=== PATIENT | female | born 1950 | race Caucasian/White ===

== ENCOUNTER 2016-11-26 16:57 | Inpatient (IN) | payer MEDICARE ==
[~2016-11-26] VITALS: Ht 146.1 cm; Wt 54.0 kg
[2016-11-26] MEDS ORDERED: Alum-Mag Hydrox-Simeth 30 mL Suspension PO PRN (17:55)
[2016-11-26] MEDS ORDERED: Ondansetron 2 mg/mL 2 mL Inj IVPUSH PRN (17:55)
[2016-11-26] MEDS ORDERED: Polyethylene Glycol (PEG) 17 Gm Powder PO PRN (17:55)
[2016-11-26 18:08] VITALS: BP 190/79; PULSE 83; RESP 16; O2SAT 98
[2016-11-26] MEDS ORDERED: LEVO150T5 PO (18:18)
[2016-11-26] MEDS ORDERED: OMEP40CA36 PO (18:18)
[2016-11-26] MEDS ORDERED: PARO40TA3 PO (18:18)
[2016-11-26] MEDS ORDERED: CLON0.1T PO (18:18)
[2016-11-26] MEDS ORDERED: ZOLP10TA5 PO (18:18)
[2016-11-26] MEDS ORDERED: LISI40TA PO (18:18)
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
[2016-11-26] MEDS: 0.9% Sodium Chloride 1,000 ML IV SCH (18:57)
[2016-11-26] MEDS: Vancomycin Dose per Pharmacist XX SCH (19:06)
--- NOTE | 2016-11-26 19:16 | PCM.CONPHA ---
Subjective Date of Service: Nov 26, 2016 Hand pain Reason for Pharmacy Consult: Vancomycin Dosing Objective Vital Signs Date Time Temp Pulse Resp B/P Pulse Ox O2 Delivery O2 Flow Rate FiO2 11/26/16 18:08 37.1 83 16 190/79 98 Room Air Weight (Kilograms): 54.000 Height (Feet): 4 Height (Inches): 9.50 Assessment/Plan Assessment/Plan Vancomycin management per pharmacy Indication: cellulitis Goal trough: 10-15 Pertinent information: - Patient comes a transfer from . - According to [facility] records, SCr is 0.7, WBC 16.4. - Per RN report, patient received vancomycin 1000 mg IV x1 around 1400 today as a loading dose. Maintenance dose: vancomycin 500 mg IV [id number]. Estimated vancomycing trough ( per pharmacokinetic modeling) is 13.1. Trough has been scheduled for 11/28/16 @ 0130. Pharmacy to continue to monitor and dose vancomycin. Thank you, Keya Payne Pharmacist Keya Payne Nov 26, 2016 19:16
[2016-11-26 19:40] VITALS: BP 194/84; PULSE 88; RESP 16; O2SAT 95
[2016-11-26] MEDS: HYDROcodone-APAP 5-325 mg Tablet PO PRN (20:22)
[2016-11-27] VITALS (11 sets, daily range): BP systolic 132–199; BP diastolic 50–87; PULSE 77–94; RESP 14–20; O2SAT 92–100
[2016-11-27] MEDS: Heparin 5,000 Unit/mL Inj SUBQ SCH ×3 (00:14→16:30)
[2016-11-27 00:24] LABS: Mean Corpuscular Volume 83.1 fL (81-100)
[2016-11-27] MEDS: Vancomycin Inj 500 MG in 0.9% Sodium Chloride 100 ML IV SCH ×3 (02:10→15:00)
[2016-11-27] MEDS: HYDROcodone-APAP 5-325 mg Tablet PO PRN ×2 (04:43→20:44)
--- NOTE | 2016-11-27 07:55 | DRSVH ---
PROCEDURE: X-RAY LEFT HAND, MINIMUM THREE VIEWS ([id number]) INDICATIONS: swelling and pain TECHNIQUE: 3 views of the hand(s) acquired. COMPARISON: None. FINDINGS: Bones: No fractures or dislocations. Carpal bones are normally aligned. No suspicious bony lesions . Soft tissues: No suspicious soft tissue calcifications. IMPRESSION: No radiodense foreign body identified. Dictated by: Ethel Cole MD, PhD on 11/27/2016 at 7:52 Approved by: Ethel Cole MD, PhD on 11/27/2016 at 7:53
[2016-11-27] MEDS: cloNIDine 0.1 mg Tablet PO SCH ×2 (08:48→20:40)
[2016-11-27] MEDS: 0.9% Sodium Chloride 1,000 ML IV SCH ×2 (08:54→13:53)
[2016-11-27] MEDS: Vancomycin Dose per Pharmacist XX SCH (09:05)
--- NOTE | 2016-11-27 09:56 | CONS ---
[address] [address] CONSULTATION REPORT PATIENT: RUBIA GRAY : 1950 MR#: [id number] ADMIT: 11/26/2016 JOB ID: [id number] DATE OF SERVICE: 11/27/2016 CHIEF COMPLAINT: Left hand and thumb pain and swelling. HISTORY OF PRESENT ILLNESS: This is a pleasant 66-year-old, [id number] female that presents with a 3-day history of left thumb and hand pain and swelling. She was tearing apart a motor home with her boyfriend when she stuck the radial aspect of her left thumb on a piece of wood. She had swelling about 2 hours after the injury with erythema. This progressively worsened yesterday and thus she presented to the hospital for further evaluation and treatment. Upon presentation to [facility] it was noted that she had quite a bit of swelling and erythema to the thenar eminence as well as the thumb. She was thus transferred over to [facility] for further evaluation and treatment. She was admitted to the hospitalist service and started on IV antibiotics. She had IV antibiotics down at [place], but had a lot of nausea at that time. She was restarted vancomycin as well as Cipro here as she was admitted to the hospital. Patient states she has not had any constitutional symptoms including any fever, sweats, and chills and only had one incidence of nausea vomiting after being administered the antibiotics. She has had normal appetite as well as normal bowel and bladder function. She denies any paresthesias to the left hand or thumb. She denies any other associated symptoms or injuries. PAST MEDICAL HISTORY: Hypertension, hypothyroidism, and anxiety. PAST SURGICAL HISTORY: Appendectomy, cervical fusion, and hysterectomy. FAMILY HISTORY: Noncontributory. SOCIAL HISTORY: The patient smokes a pack of cigarettes a day. Denies any alcohol utilization. Uses marijuana daily. MEDICATIONS: Please see electronic medical record for a list of patient medications. ALLERGIES: 1. FLEXERIL. 2. ROCEPHIN. REVIEW OF SYSTEMS: The patient denies any fevers, sweats, chills, chest pain, short of breath, nausea, vomiting, and diarrhea. She complains mainly of left hand and thumb pain as described in the history of present illness. PHYSICAL EXAMINATION: General: The patient is alert, no apparent distress. HEENT: Normocephalic, atraumatic. Extraocular movements intact. Nares patent. Lungs no wheezes or signs of respiratory distress. Neurologic, cranial nerves 2-12 are intact. Extremities: Gross observation of the patient's left thumb there is a moderate amount of erythema to the dorsal aspect of the hand and the thumb. No palpable fluctuance, but there is near circumferential swelling. There is tenderness to palpation both dorsally and volarly to the thumb including overlying the flexor tendon sheath. The patient demonstrates very limited thumb range of motion secondary reproduction of pain. Small puncture wound just radial to the first MCP joint. The erythema stops just distal to the wrist crease. There are palpable distal radial and ulnar pulses, brisk capillary refill to the fingers, and completely intact sensation median, radial, and ulnar nerve distribution. DIAGNOSTIC STUDIES: His white count was obtained and this morning demonstrates elevation at 14.8, as well as elevated ESR of 66 and elevated CRP of 2.9. Three views of the left hand was also obtained and demonstrated no acute fractures or dislocations as it is mainly soft tissue swelling surrounding the thumb and the dorsal radial hand. IMPRESSION: Left hand and thumb cellulitis and abscess. PLAN: Discussed with the patient in length her diagnosis. She has really not had much improvement overnight, and she has already had two different rounds of antibiotics consisting of vancomycin and Cipro. We discussed proceeding with an incision and drainage of the left hand and thumb. She understands risks include, but are not limited to, neurovascular injury, tendon injury, failure to resolve the infection, stiffness, persistent pain all of which may require further intervention. The patient had all questions answered. Consent was signed and placed in the chart. The patient will undergo surgery this afternoon. She will be splinted and postoperative day number one, the splint will be removed as well as the drains that will be replaced. She will then start occupational therapy for range of motion of the left hand. The patient can be discharged to home with p.o. antibiotics once her condition improves and/or the final cultures and sensitivities return.
[2016-11-27] MEDS ORDERED: EPHEDrine/NS 5 mg/mL 5 mL Syringe ONE (13:56)
[2016-11-27] MEDS ORDERED: Ondansetron 2 mg/mL 2 mL Inj ONE (13:56)
[2016-11-27] MEDS ORDERED: Propofol 10,000 mCg/mL 20 mL Inj ONE (13:56)
[2016-11-27] MEDS ORDERED: fentaNYL-PF 50 mCg/mL 2 mL Inj ONE (13:56)
--- NOTE | 2016-11-27 15:04 | PCM.PNMED ---
Subjective Date of Service Nov 27, 2016 Subjective Patient reports continued pain in left thumb. Thinks erythema may have come down a little bit to rest. Getting surgery this afternoon. Has been nothing by mouth. Patient was hypertensive however has not received home medications since admission. Exam Vital Signs Vital Sign - Last Date Time Temp Pulse Resp B/P Pulse Ox O2 Delivery O2 Flow Rate FiO2 11/27/16 08:06 36.5 87 20 170/74 93 Room Air Intake and Output 11/26/16 11/26/16 11/27/16 Cumulative From/Thru 15:00 23:00 07:00 11/26/16 18:08 - 11/27/16 06:46 Intake Total 0 ml 200 ml 200 ml Output Total 0 ml 400 ml 400 ml Balance 0 ml -200 ml -200 ml Intake Oral 0 ml 200 ml 200 ml Output Urine Total 0 ml 400 ml 400 ml Exam General: No acute distress, well-developed, well-nourished, appropriately interactive HEENT: Normocephalic, atraumatic. External ears without defect. Pupils equal, round, and reactive to light and accommodation. Anicteric sclerae, moist conjunctivae, and no lid lag. Oropharynx free of erythema and cobble stoning with moist mucosa. Neck: Supple with full range of motion. No jugular venous distension. No bruits. No lymphadenopathy or thyromegaly. Cardiovascular: Regular rate and rhythm with no murmurs, rubs, or gallops appreciated Pulmonary: Clear to auscultation bilaterally with no crackles, wheezes, or rhonchi. Normal respiratory effort with no use of accessory muscles. Abdomen: Bowel tones present. Soft, nontender, nondistended. No hepatosplenomegaly or masses appreciated. Extremities: Left thenar eminence with erythema, significantly swollen, and quite tender even to light touch. Erythema extending up the wrist- improved. Unable to move the thumb in any plane of motion. Skin: Erythema as above. Neurological: Cranial nerves grossly intact. Normal muscle strength, tone, and bulk. Reflexes, coordination, and sensory function within normal limits. No known gait impairment. Psychiatric: Normal mood and affect. Alert and oriented to person, place, and time. IVs and Medications Medications Reviewed: Medications were reviewed in detail Lab and Diagnostics Result Diagram: 11/27/16 0015 11/27/16 0530 X-Rays, CTs and MRIs 11/26/162004X-RAY LEFT HAND, MINIMUM THREE VIEWS ([id number]) INDICATIONS: swelling and pain TECHNIQUE: 3 views of the hand(s) acquired. COMPARISON: None. FINDINGS: Bones: No fractures or dislocations. Carpal bones are normally aligned. No suspicious bony lesions. Soft tissues: No suspicious soft tissue calcifications. IMPRESSION: No radiodense foreign body identified. Assessment & Plan Maribell Reynaga is a 66 year old woman with past medical history depression, hypertension, hypothyroidism presented to [facility] emergency department today with a left thumb injury and hand pain for the last 3 days. #Left hand cellulitis, present on admission, -Dr. Snow consulted, appreciate time and expertise -Plan for surgery this afternoon. NPO after midnight. -Continue Vancomycin and Ciprofloxacin -NS @ 100 cc/hr -Morphine as needed for pain -Per Surgery- patient will undergo surgery this afternoon. -She will be splinted and postoperative day number one, the splint will be removed as well as the drains that will be replaced. -She will then start occupational therapy for range of motion of the left hand. -The patient can be discharged to home with p.o. antibiotics once her condition improves and/or the final cultures and sensitivities return. #Hypertension -Continue home medications Chronic issues, present on admission, stable: #Hypothyroidism -Continue home medications #Depression -Continue home medications #Diet controlled diabetes -Carb constant diet. Blood glucose checks. -Consider initiating insulin. CODE STATUS: FULL CODE Patient is admitted under inpatient status with expected length of stay greater than 2 midnights due to severity of presenting symptoms, risk of adverse event, and complexity of treatment plan. VTE Prophylaxis: Sub-Q Heparin (Unfractionated) VTE Mechanical Devices: Intermittant Pneumatic CD Resuscitation Status: CPR: Attempt Resuscitation Mario Coreas MD Nov 27, 2016 15:04
[2016-11-27] MEDS ORDERED: Polyethylene Glycol (PEG) 17 Gm Powder PO PRN (15:10)
[2016-11-27] MEDS ORDERED: Magnesium Hydroxide 10 mL Oral Concentration PO PRN (15:10)
[2016-11-27] MEDS ORDERED: diphenhydrAMINE 25 mg Capsule PO PRN (15:10)
[2016-11-27] MEDS ORDERED: Sodium Biphos-Phos 133 mL Enema RECTAL PRN (15:10)
[2016-11-27] MEDS ORDERED: Lactated Ringer's 1,000 ML IV ONE (15:11)
[2016-11-27] MEDS ORDERED: Lactated Ringer's 1,000 ML IV SCH (15:31)
[2016-11-27] MEDS ORDERED: Lactated Ringer's 500 ML IV PRN (15:31)
--- NOTE | 2016-11-27 15:31 | PCM.HPANE ---
Patient Data Surgeon Admitting Provider:Alberto Macias MD Attending Provider:Mario Coreas MD Primary Care Physician:Melody Other Provider: Reason for Visit Left Hip Cellulitis Ht/WT & BMI Height (Feet): 4 Height (Inches): 9.50 Weight (Kilograms): 54.000 Body Mass Index 25.33 Allergies Coded Allergies: cyclobenzaprine (Verified Allergy, Severe, Anaphylaxis, 11/26/16) Airway swelling ceftriaxone (Verified Adverse Reaction, Intermediate, Nausea,Vomiting, ) Immediate vomiting after 1 minute of infusion Past Anesthesia History Anesthesia History: Denies:: Anesthesia Reactions Diabetes History Hx Diabetes?: Yes Current Bedside Blood Glucose: 110 MRSA MRSA: No Medications Reported Medications Omeprazole 40 Mg Capsule.dr40 Mg PO DAILY Ref 0 11/26/16 Clonidine 0.1 Mg Tablet0.1 Mg PO BID Ref 0 11/26/16 Paroxetine 40 Mg Prmlyw49 Mg PO HS 30 Days Ref 0 11/26/16 Zolpidem 10 Mg Nwriii30 Mg PO HS PRN For Insomnia Ref 0 11/26/16 Levothyroxine 150 Mcg [id number] Mcg PO DAILY Ref 0 11/26/16 Lisinopril 40 Mg [id number] Mg PO DAILY 30 Days Ref 0 11/26/16 History History of ENT Problems?: No HEENT History: Positive for:: Abnormal Airway Denture Type: Full- Upper Full- Lower Teeth Condition: Missing Teeth Hx of Heart Problems?: Yes Cardiovascular History: Positive for:: Hypertension Denies:: Cardiac Surgery Chest Pain Congestive Heart Failure Edema Heart Murmur Irregular Heartbeat Pacemaker Thrombophlebitis Hx of Respiratory Problem?: Yes Respiratory History: Positive for:: Asthma Pneumonia Denies:: COPD Chest Surgery Dyspnea Emphysema Hemoptysis Tuberculosis Hx Neurologic Problems?: Yes Neurological History: Positive for:: Dizziness Denies:: Alzheimer's Disease CVA Dementia Headaches Parkinson's Disease Seizures Hx of GI Problems?: No Hx of Problems?: Yes Genitourinary History: Positive for:: Kidney Stones Denies:: HX of Hemodialysis Urinary Tract Infection HX of Peritoneal Dialysis: No Female Hx: Denies:: Currently Endometriosis Pelvic Inflammatory Problems with Breasts? Hx Musculoskeletal Problems?: Yes Musculoskeletal History: Positive for:: Back Injury Denies:: Joint Replacement Musculoskeletal Trauma Hx of Psycho/Social Problems?: Yes Psycho Social History: Positive for:: Suicide Attempt (2006 after husbands ) Denies:: Anxiety Bipolar Disorder Hx Depression Hx Surgeries?: Yes (neck, gallbladder,appendix, histerectomy.) Other History: Positive for:: Hospitalization Thyroid Disease Denies:: Cancer History Blood Transfusions: Positive for:: Accept Blood Products? Blood Transfusions Denies:: Blood Transfuse Reaction (Hep C with treatment) Hx Diabetes: YesBedside Blood Glucose: 110 Hx Alcohol Use: NoHx Substance Use: Yes (Marijuana)Have You Smoked inLast 12 mo: YesApprox How Many Cigarettes/day: 1 Stop/Bang Treated for Sleep Apnea?: No Do You Have a CPAP Machine?: No S-Snoring: Do You Snore Loudly: Yes T-Tired: feel tired, fatigued: Yes O-Obsered: Observed not breath: No P-Blood Pressure: treated: Yes B- Body Mass Index > 35 kg/m2: No A- Age over 50: Yes N- Neck Large Circumference: No G- Gender Male: No MANUELITO Total Score: 3 MANUELITO Category 2: Yes Risk Assessment Category Category 1A: Patient has history of documented sleep apnea, and HAS NOT received any narcotic, sedative or anesthesia administration during this stay. Category 1B: Patient has history of documented sleep apnea, and HAS received any narcotic , sedative or anesthesia administration during this stay Category 2: Patient has SUSPECTED Obstructive Sleep Apnea, and HAS received any narcotic , sedative or anesthesia administration during this stay. Category 3: Patient has SUSPECTED Obstructive Sleep Apnea and HAS NOT received narcotic, sedative or anesthesia administration during this stay. Category 4: Outpatient in Procedural Areas with known sleep apnea or who screen positive for High Risk via the STOP/BANG questionnaire. Exam Exam Vital Signs Vital Signs Date Time Temp Pulse Resp B/P Pulse Ox O2 Delivery O2 Flow Rate FiO2 11/27/16 08:06 36.5 87 20 170/74 93 Room Air General Appearance: Alert HEENT/AIRWAY: MP 2, Neck Movement (FROM, 3 FB) Lungs: Clear to Auscultation, Wheezes Heart: Regular Rate/Rhythm Meds/Labs/Diagnostics Admission Meds Current Medications Heparin Sodium (Porcine) 5000 unit 5,000 unit Q8 SUBQ Last administered on 11/27t 08:48; Start 11/27/16 at 00:30 Sodium Chloride (Normal Saline) 1,000 ml @ 100 mls/hr Q10H IV Last administered on 11/27/16 08:54; Start 11/26/16 at 17:53 Pharmacy Consult (Pharmacist Managed Vancomcyin) 1 ea DAILY XX Last administered on 11/27/16 09:05; Start 11/26/16 at 19:06 Ciprofloxacin 500 mg 500 mg BID PO Last administered on 11/27/16 06:16; Start 11/27/16 at 05:00 Vancomycin HCl/ Sodium Chloride (Vancocin Inj/ Normal Saline) 100 ml @ 66.667 mls/ hr Q12H IV Last administered on 11/27/16 02:10; Start 11/27/16 at 02:00 Clonidine (Catapres) 0.1 mg BID PO Last administered on 11/27/16 08:48; Start 11/27/16 at 08:30 Levothyroxine Sodium (Synthroid) 150 mcg DAILYAC PO Last administered on 08:48; Start 11/27/16 at 07:23 Lisinopril (Zestril) 40 mg DAILY PO Last administered on 11/27/16 08:48; Start 11/27/16 at 08:30 Nicotine (Nicoderm 7 mg/ 24 Hr Patch) 1 patch DAILY TOPICAL Last administered on 11/27/16 12:37; Start 11/27/16 at 12:00 Bedside Blood Glucose: 110 Labs Test 11/27/16 00:15 11/27/16 05:30 White Blood Count 14.8th/mm3 (3.8-10.1) Red Blood Count 4.19mil/mm3 (3.90-5.20) Hemoglobin 11.3g/dL (12.0-15.6) Hematocrit 34.8% (35.0-46.0) Mean Corpuscular Volume 83.1fL (81-100) Mean Corpuscular Hemoglobin 27.0pg (27.0-35.0) Mean Corpuscular Hemoglobin Concent 32.5% (32.0-37.0) Red Cell Distribution Width 17.0% (12.3-15.4) Platelet Count 379bil/L (150-400) Erythrocyte Sedimentation Rate 66mm/hr (0-40) C-Reactive Protein 2.9mg/dL (0.0-0.5) Sodium Level 143mEq/L (134-144) Potassium Level 3.7mEq/L (3.5-5.2) Chloride Level 106mEq/L (97-108) Carbon Dioxide Level 21mmol/L (18-29) Blood Urea Nitrogen 8mg/dL (8-27) Creatinine 0.57mg/dL (0.57-1.00) Estimat Glomerular Filtration Rate 152mL/min (>59) Glucose Level 120mg/dL (60-99) Calcium Level 8.8mg/dL (8.5-10.1) Total Bilirubin 0.3mg/dL (0.0-1.2) Aspartate Amino Transf (AST/SGOT) 13U/L (0-50) Alanine Aminotransferase (ALT/SGPT) 6U/L (0-32) Alkaline Phosphatase 90U/L (25-165) Total Protein 6.4g/dL (6.4-8.4) Albumin 3.6g/dL (3.4-5.0) Plan Impression Patient chart reviewed, patient interviewed and anesthestic plan with risks, benefits, and alternatives discussed, and informed consent obtained. NPO per Anesth. Guidelines: Yes ASA Physical Status: ASA2 Mod Systemic Disease Anesthetic Plan: GA Bene/Risks/Altern/Consents: Yes HP Complete Prior to Induction: Yes Reyes Ruiz MD Nov 27, 2016 13:45
[2016-11-27] MEDS ORDERED: fentaNYL-PF 50 mCg/mL 2 mL Inj IVPUSH PRN (15:35)
[2016-11-27] MEDS ORDERED: MetoCLOpramide 5 mg/mL 2 mL Inj IVPUSH PRN (15:35)
[2016-11-27] MEDS ORDERED: HYDROmorphone 1 mg/mL Inj IVPUSH PRN (15:35)
[2016-11-27] MEDS ORDERED: Phenylephrine 10,000 mCg/mL Inj IVPUSH PRN (15:35)
[2016-11-27] MEDS ORDERED: Ondansetron 2 mg/mL 2 mL Inj IVPUSH PRN (15:35)
[2016-11-27] MEDS ORDERED: Dexamethasone 4 mg/mL Inj IVPUSH PRN (15:35)
[2016-11-27] MEDS ORDERED: EPHEDrine Sulfate 50 mg/mL Inj IVPUSH PRN (15:35)
[2016-11-27 16:24] LABS: APPEARANCE,URINE HAZY (CLEAR,HAZY); COLOR,URINE YELLOW (YELLOW); OCCULT BLOOD,URINE NEGATIVE (NEGATIVE); UROBILINOGEN,URINE NORMAL (NORMAL)
[2016-11-27 16:25] LABS: YEAST,URINE MANY (NONE SEEN)
[2016-11-27] MEDS: Sodium Chloride LOK Flush 10 mL Syringe IV SCH (16:32)
[2016-11-27] MEDS: Senna-Docusate 8.6-50 mg Tablet PO SCH (20:40)
[2016-11-28] MEDS: Sodium Chloride LOK Flush 10 mL Syringe IV SCH ×3 (00:30→16:09)
[2016-11-28] MEDS: HYDROcodone-APAP 5-325 mg Tablet PO PRN ×5 (00:36→22:19)
[2016-11-28] MEDS: Heparin 5,000 Unit/mL Inj SUBQ SCH ×3 (00:38→16:09)
[2016-11-28 00:44] VITALS: BP 130/70; PULSE 80; RESP 20; O2SAT 93
[2016-11-28] MEDS ORDERED: Vancomycin Serum Trough XX ONE (01:30)
--- NOTE | 2016-11-28 03:00 | PCM.PHAPRO ---
Progress Date of Service: Nov 28, 2016 Hand pain Vancomycin dosing by pharmacy for 66 y/o woman A: * The patient was receiving vancomycin 500 mg IV every 12 hours * A low trough level of 6.3 mcg/mL was drawn prior to the fourth dose * SCr appears stable * Cultures are pending P: * Increase vancomycin dose to 750 mg IV every 12 hours * Continue targeting a trough range of 10 - 15 mcg/mL * Draw another trough level after 3 more doses Thank you. Pharmacy will continue to follow this patient. Marium Lorenzo Nov 28, 2016 02:59
[2016-11-28] MEDS: Vancomycin Inj 750 MG in 0.9% Sodium Chloride 250 ML IV SCH ×2 (03:29→16:03)
[2016-11-28 05:51] VITALS: BP 127/64; PULSE 83; RESP 18; O2SAT 91
[2016-11-28 05:56] LABS: BASOPHILS % (AUTO) 0.5 % (0-3); EOSINOPHILS % (AUTO) 4.1 % (0-5); MONOCYTES % (AUTO) 12.3 % (4-12); Mean Corpuscular Hemoglobin 27.5 pg (27.0-35.0); Mean Corpuscular Volume 82.9 fL (81-100); NEUTROPHILS % (AUTO) 62.5 % (40-74); Platelet Count 363 bil/L (150-400)
--- NOTE | 2016-11-28 08:10 | OP ---
[address] [address] OPERATIVE REPORT PATIENT: RUBIA GRAY : 1950 MR#: [id number] ADMIT: 11/26/2016 JOB ID: [id number] DATE OF SURGERY: 11/27/2016 PREOPERATIVE DIAGNOSIS(ES): Left hand and thumb cellulitis and abscess. POSTOPERATIVE DIAGNOSIS(ES): Left hand and thumb cellulitis and abscess. PROCEDURE: Incision and drainage of left hand and thumb complicated abscess. SURGEON: Magdaleno Snow D.O. ANESTHESIA: General. HISTORY: The patient is a 66-year-old female, who presented three days after sustaining a puncture wound with a piece of wood from tearing down a mobile home. She noticed increased swelling and erythema and pain and thus presented on November 26 to [facility] where she was started on antibiotics and then transferred to [facility]. Overnight being on several doses of antibiotics she had very little improvement in her symptoms. Thus I discussed with the patient the risks, benefits, alternatives and indications to proceed with an incision and drainage of the left hand and thumb. The majority of the patient's swelling and pain was to the dorsal and volar aspect of the thumb and the thenar eminence. She understood the risks include, but are not limited to, neurovascular injury, tendon injury, failure to resolve the infection, stiffness, persistent pain, all of which may require further intervention. The patient had all questions answered. Consent was signed and placed in the chart. PROCEDURE IN DETAIL: The patient was brought to the operative suite and placed supine on the operating room table. Surgical time-out was performed. Everyone in the room was in agreement. After appropriate anesthesia was obtained, a left upper arm tourniquet was applied and the left upper extremity was prepped and draped in a sterile fashion. Left hand was then elevated and the tourniquet inflated to 250 mmHg. A curvilinear incision was made dorsally overlying the metacarpophalangeal joint of the thumb. Dissection was carried down to the overlying extensor tendon. There was a moderate amount of murky drainage from the dorsal aspect of the thumb but no gross purulence was identified. Copious irrigation was then performed. Attention was then turned toward the volar aspect of the thumb. A [place] type incision was made along the flexor tendon sheath. Dissection was carried down to the flexor tendon sheath. Moderate amount of purulence emanated from the wound. This area was cultured with aerobic and anaerobic cultures as well as Gram stain. Next the wound was copiously irrigated with normal saline. Next, the flexor tendon sheath was opened at the level of the A1 man. No purulence emanated from the flexor tendon sheath. A quarter-inch iodoform gauze was placed both to the dorsal and volar wound and the incisions closed with 5-0 nylon in a simple interrupted fashion. The patient was then placed in a well-padded, well-molded thumb spica splint. ESTIMATED BLOOD LOSS: Less than 1 cc. COMPLICATIONS: None. DISPOSITION: The patient tolerated the procedure well. Anesthesia was reversed. The patient was transferred back to recovery. SPECIMENS: One aerobic and anaerobic culture as well as Gram stain from the volar thumb wound. POSTOPERATIVE PLAN: The patient will have the splint and the drains removed on postoperative day #1 and then start working on range of motion of the hand and thumb with occupational therapy. As she continues to demonstrate improvement or the cultures return with the sensitivities, then she can be discharged home with p.o. antibiotics and followup in the office in a week.
[2016-11-28] MEDS: 0.9% Sodium Chloride 1,000 ML IV SCH ×3 (08:14→16:09)
[2016-11-28] MEDS: cloNIDine 0.1 mg Tablet PO SCH ×2 (08:15→22:18)
[2016-11-28] MEDS: Senna-Docusate 8.6-50 mg Tablet PO SCH ×2 (08:16→22:18)
[2016-11-28] MEDS: Vancomycin Dose per Pharmacist XX SCH (08:30)
--- NOTE | 2016-11-28 08:35 | PCM.ANEP1 ---
Post Anesthesia PACU Phase 1 Assessment Vital Signs Vital Signs Date Time Temp Pulse Resp B/P Pulse Ox O2 Delivery O2 Flow Rate FiO2 11/28/16 05:51 36.6 83 18 127/64 91 Room Air 11/28/16 00:44 36.8 80 20 130/70 93 Room Air Anesthetic Administered: GA Level of Alertness: Awake, talking PAYTON's with Equal Strength: Yes Pain: No Pain Scale Score: 5 Nausea or Vomiting: No CV Function & Hydration Stable: Yes Airway Device: Oxygen Delivery: Simple Mask Lungs: Clear to Auscultation, Wheezes Dermatome Level: Full Sensation PACU Phase 2 Assessment Complications: No Follow up Care: No Patient Instructions Provided: N/A Reyes Ruiz MD Nov 28, 2016 08:35
--- NOTE | 2016-11-28 10:10 | PCM.PNORTH ---
Subjective Date of Service: Nov 28, 2016 Visit Information: Reason for Visit Left Hip Cellulitis Surgery/Surgery Date Post-Op Day # 1 Date of Admission: Nov 26, 2016 at 18:36 Hospital Day # Subjective Patient states her pain is well controlled today. She states she thinks the swelling has been reduced. Postop General: No Complaints Pain Management: PO Objective Exam Objective Patient sitting up in bed watching TV Vital Signs and I/O Vital Sign - Last Date Time Temp Pulse Resp B/P Pulse Ox O2 Delivery O2 Flow Rate FiO2 11/28/16 08:35 Simple Mask 11/28/16 05:51 36.6 83 18 127/64 91 11/27/16 17:09 2.00 Intake and Output 11/27/16 11/27/16 11/28/16 Cumulative From/Thru 15:00 23:00 07:00 11/26/16 18:08 - 11/28/16 06:28 Intake Total 1083 ml 2050 ml 860 ml 4193 ml Output Total 1001 ml 840 ml 2241 ml Balance 1083 ml 1049 ml 20 ml 1952 ml Intake Oral 200 ml 300 ml 700 ml IV Total 1083 ml 1850 ml 560 ml 3493 ml Output Urine Total 1000 ml 840 ml 2240 ml Estimated Blood Loss 1 ml 1 ml # Bowel Movements 0 0 Lab & Micro Results Laboratory Tests Test 11/27/16 14:14 11/27/16 15:40 11/28/16 01:45 11/28/16 04:50 Hold Urine Received (Received) Urine Color Yellow (YELLOW) Urine Appearance Hazy (CLEAR,HAZY) Urine pH 5.0 (5.0-8.0) Urine Specific [place] 1.021 (1.003-1.035) Urine Protein Negativemg/dL (NEG,TRACE) Urine Glucose (UA) Negativemg/dL (NEGATIVE) Urine Ketones 15mg/dL (NEGATIVE) Urine Occult Blood Negative (NEGATIVE) Urine Nitrite Negative (NEGATIVE) Urine Bilirubin Negative (NEGATIVE) Urine Urobilinogen Normalmg/dL (NORMAL) Urine Leukocyte Esterase Negative (NEGATIVE) Urine RBC 0-2/hpf (0-2) Urine WBC 0-5/hpf (0-5) Urine Epithelial Cells Many/hpf (NONE-MOD) Urine Crystals None seen (NONE SEEN) Urine Bacteria Few/hpf (NONE-FEW) Urine Hyaline Casts None/lpf (NONE) Urine Granular Casts None seen (NONE SEEN) Urine Waxy Casts None seen (NONE SEEN) Urine Red Blood Cell Casts None seen (NONE SEEN) Urine White Blood Cell Casts None seen (NONE SEEN) Urine Mucus None seen (None Seen) Urine Trichomonas None seen (NONE SEEN) Urine Yeast Many (NONE SEEN) Urinalysis Comment None Urine Culture Reflexed Not indicated Vancomycin Level Trough 6.3mcg/mL White Blood Count 12.2th/mm3 (3.8-10.1) Red Blood Count 3.74mil/mm3 (3.90-5.20) Hemoglobin 10.3g/dL (12.0-15.6) Hematocrit 31.0% (35.0-46.0) Mean Corpuscular Volume 82.9fL (81-100) Mean Corpuscular Hemoglobin 27.5pg (27.0-35.0) Mean Corpuscular Hemoglobin Concent 33.2% (32.0-37.0) Red Cell Distribution Width 17.5% (12.3-15.4) Platelet Count 363bil/L (150-400) Neutrophils (%) (Auto) 62.5% (40-74) Lymphocytes (%) (Auto) 20.2% (14-46) Monocytes (%) (Auto) 12.3% (4-12) Eosinophils (%) (Auto) 4.1% (0-5) Basophils (%) (Auto) 0.5% (0-3) Sodium Level 141mEq/L (134-144) Potassium Level 3.6mEq/L (3.5-5.2) Chloride Level 106mEq/L (97-108) Carbon Dioxide Level 20mmol/L (18-29) Blood Urea Nitrogen 8mg/dL (8-27) Creatinine 0.60mg/dL (0.57-1.00) Estimat Glomerular Filtration Rate 143mL/min (>59) Glucose Level 106mg/dL (60-99) Calcium Level 8.5mg/dL (8.5-10.1) Microbiology 11/26/16 Blood Culture - Preliminary, Resulted NO GROWTH AFTER 24 HOURS 11/27/16 Gram Stain - Final, Resulted 11/27/16 Culture & Sensitivity - Preliminary, Resulted No growth to date 11/27/16 Anaerobic Culture, Resulted Pending Result Diagram: 11/28/1644911/28/16449 General Appearance: Alert, Oriented X3, Cooperative, No Acute Distress Extremities: Distal Pulses Palpable, No Compartment Syndrom Noted, Tenderness/ Swelling Noted (Moderate swelling throughout hand and fingers) Postop Sensory Motor: Distal Motor Intact, Movement in Fingers, Distal Sensation Intact, NVI Distally SURGICAL WOUND : Drain Location Body Site: Left hand Dressing & Drainage Status: Changed, Purulent Drainage Noted Wound Drainage Type: [place] (Removed at this visit) Activity: Activity per PT (Gentle ROM) Assessment & Plan Impression POD#1 Incision and drainage of left hand and thumb complicated abscess. Problems: Plan Dressing: Splint and the drains were removed and a bulky dressing was placed. Patient will likely need the dressing changed and there was some draining from drain sites. If the dressings become saturated please change. Bulky dressing may be changed to a evp operations dressing tomorrow or before she is discharged if she discharges today if not draining. Activity: Gentle range of motion to the hand and thumb with occupational therapy. Analgesia: Encourage oral pain management. Ice and elevate frequently to reduce pain/swelling. We are awaiting thecultures return with the sensitivities, then she can be discharged home with p.o. antibiotics and followup in the office in a week. VTE Prophylaxis: Sub-Q Heparin (Unfractionated) Resuscitation Status: CPR: Attempt Resuscitation Mary Lou Hobbs PA-C Nov 28, 2016 10:10
--- NOTE | 2016-11-28 11:22 | PCM.PNMED ---
Subjective Date of Service Nov 28, 2016 Subjective Patient reports improved pain today with left hand. Patient did have dressing changed today and drain removed. No overnight events. Exam Vital Signs Vital Sign - Last Date Time Temp Pulse Resp B/P Pulse Ox O2 Delivery O2 Flow Rate FiO2 11/28/16 08:35 Simple Mask 11/28/16 05:51 36.6 83 18 127/64 91 11/27/16 17:09 2.00 Intake and Output 11/27/16 11/27/16 11/28/16 Cumulative From/Thru 15:00 23:00 07:00 11/26/16 18:08 - 11/28/16 06:28 Intake Total 1083 ml 2050 ml 860 ml 4193 ml Output Total 1001 ml 840 ml 2241 ml Balance 1083 ml 1049 ml 20 ml 1952 ml Intake Oral 200 ml 300 ml 700 ml IV Total 1083 ml 1850 ml 560 ml 3493 ml Output Urine Total 1000 ml 840 ml 2240 ml Estimated Blood Loss 1 ml 1 ml # Bowel Movements 0 0 Exam General: No acute distress, well-developed, well-nourished, appropriately interactive HEENT: Normocephalic, atraumatic. External ears without defect. Pupils equal, round, and reactive to light and accommodation. Anicteric sclerae, moist conjunctivae, and no lid lag. Oropharynx free of erythema and cobble stoning with moist mucosa. Neck: Supple with full range of motion. No jugular venous distension. No bruits. No lymphadenopathy or thyromegaly. Cardiovascular: Regular rate and rhythm with no murmurs, rubs, or gallops appreciated Pulmonary: Clear to auscultation bilaterally with no crackles, wheezes, or rhonchi. Normal respiratory effort with no use of accessory muscles. Abdomen: Bowel tones present. Soft, nontender, nondistended. No hepatosplenomegaly or masses appreciated. Extremities: Left Hand Bandaged- minimal drainage. Can move thumb. Skin: Erythema as above. Neurological: Cranial nerves grossly intact. Normal muscle strength, tone, and bulk. Reflexes, coordination, and sensory function within normal limits. No known gait impairment. Psychiatric: Normal mood and affect. Alert and oriented to person, place, and time. IVs and Medications Medications Reviewed: Medications were reviewed in detail Lab and Diagnostics Result Diagram: 11/28/16 0450 11/28/16 0450 Microbiology Microbiology 11/26/16 Blood Culture - Preliminary, Resulted NO GROWTH AFTER 24 HOURS 11/27/16 Gram Stain - Final, Resulted 11/27/16 Culture & Sensitivity - Preliminary, Resulted No growth to date 11/27/16 Anaerobic Culture, Resulted Pending X-Rays, CTs and MRIs 11/26/16 2005X-RAY LEFT HAND, MINIMUM THREE VIEWS ([id number]) INDICATIONS: swelling and pain TECHNIQUE: 3 views of the hand(s) acquired. COMPARISON: None. FINDINGS: Bones: No fractures or dislocations. Carpal bones are normally aligned. No suspicious bony lesions. Soft tissues: No suspicious soft tissue calcifications. IMPRESSION: No radiodense foreign body identified. Assessment & Plan Marbiell Reynaga is a 66 year old woman with past medical history depression, hypertension, hypothyroidism presented to [facility] emergency department today with a left thumb injury and hand pain for the last 3 days. S/ P Incision and drainage of left hand and thumb complicated abscess POD #1. #Left hand cellulitis, present on admission, S/P Incision and drainage of left hand and thumb complicated abscess POD #1. -Dr. Snow consulted, appreciate time and expertise -Continue Vancomycin and Ciprofloxacin -NS @ 100 cc/hr -Morphine as needed for pain -Per Surgery- splinted and postoperative, the splint will be removed as well as the drains that will be replaced next day. . - On 11/28 Splint and the drains were removed and a bulky dressing was placed, will need dressing change Wed before discharge. - Activity: Gentle range of motion to the hand and thumb with occupational therapy. - Analgesia: Encourage oral pain management. - patient can be discharged to home with p.o. antibiotics once her condition improves and/or the final cultures and sensitivities return. - Ice and elevate frequently to reduce pain/swelling. - Follow with Dr. Magdaleno Snow in office in 1 Week. #Hypertension -Continue home medications, better controlled today. Chronic issues, present on admission, stable: #Hypothyroidism -Continue home medications #Depression -Continue home medications #Diet controlled diabetes -Carb constant diet. Blood glucose checks. -Consider initiating insulin. CODE STATUS: FULL CODE Patient is admitted under inpatient status with expected length of stay greater than 2 midnights due to severity of presenting symptoms, risk of adverse event, and complexity of treatment plan. Pain Evaluation: Adequate Pain Control VTE Prophylaxis: Sub-Q Heparin (Unfractionated) VTE Mechanical Devices: Intermittant Pneumatic CD Resuscitation Status: CPR: Attempt Resuscitation Mario Coreas MD Nov 28, 2016 11:22
[2016-11-28 16:00] VITALS: BP 166/69; PULSE 79; RESP 16; O2SAT 96
[2016-11-28 20:52] VITALS: BP 158/70; PULSE 84; RESP 18; O2SAT 94
[2016-11-29] MEDS: Sodium Chloride LOK Flush 10 mL Syringe IV SCH ×2 (01:50→08:22)
[2016-11-29] MEDS: Heparin 5,000 Unit/mL Inj SUBQ SCH ×2 (01:50→08:22)
[2016-11-29] MEDS: HYDROcodone-APAP 5-325 mg Tablet PO PRN ×4 (03:04→15:37)
[2016-11-29] MEDS: Vancomycin Inj 750 MG in 0.9% Sodium Chloride 250 ML IV SCH (03:04)
[2016-11-29 04:38] VITALS: BP 130/74; PULSE 75; RESP 16; O2SAT 93
[2016-11-29] MEDS: 0.9% Sodium Chloride 1,000 ML IV SCH (05:53)
[2016-11-29 06:10] LABS: BASOPHILS % (AUTO) 0.5 % (0-3); EOSINOPHILS % (AUTO) 4.8 % (0-5); MONOCYTES % (AUTO) 11.1 % (4-12); Mean Corpuscular Hemoglobin 27.7 pg (27.0-35.0); Mean Corpuscular Volume 84.1 fL (81-100); NEUTROPHILS % (AUTO) 58.3 % (40-74); Platelet Count 358 bil/L (150-400)
[2016-11-29] MEDS: cloNIDine 0.1 mg Tablet PO SCH (08:21)
[2016-11-29] MEDS: Senna-Docusate 8.6-50 mg Tablet PO SCH (08:21)
[2016-11-29] MEDS: Vancomycin Dose per Pharmacist XX SCH (08:30)
[2016-11-29] MEDS ORDERED: Potassium Chloride 20 mEq SR Tablet PO ONE (09:40)
[2016-11-29 11:34] VITALS: BP 168/72; PULSE 74; RESP 18; O2SAT 95
--- NOTE | 2016-11-29 12:01 | PCM.PNORTH ---
Subjective Date of Service: Nov 29, 2016 Visit Information: Reason for Visit Left Hand Cellulitis Surgery/Surgery Date Left hand I&D 11/27/2016 Post-Op Day # 2 Date of Admission: Nov 26, 2016 at 18:36 Hospital Day # Subjective Patient feels the swelling is going down. Overall, there is less pain but it gets sore when she does her exercises. She is anxious to go home today. Postop General: No Complaints, No Shortness of Breath, No Chest Pain, Good Appetite Pain Management: PO Objective Exam Objective Patient is seen sitting up in bed. Vital Signs and I/O Vital Sign - Last Date Time Temp Pulse Resp B/P Pulse Ox O2 Delivery O2 Flow Rate FiO2 11/29/16 11:34 36.7 74 18 168/72 95 Room Air 11/27/16 17:09 2.00 Intake and Output 11/28/16 11/28/16 11/29/16 Cumulative From/Thru 15:00 23:00 07:00 11/26/16 18:08 - 11/29/16 06:18 Intake Total 1555 ml 200 ml 5948 ml Output Total 600 ml 450 ml 3291 ml Balance 955 ml -250 ml 2657 ml Intake Oral 400 ml 200 ml 1300 ml IV Total 1155 ml 4648 ml Output Urine Total 600 ml 450 ml 3290 ml Estimated Blood Loss 1 ml # Bowel Movements 0 0 Lab & Micro Results Laboratory Tests Test 11/29/16 05:45 White Blood Count 9.6th/mm3 (3.8-10.1) Red Blood Count 3.58mil/mm3 (3.90-5.20) Hemoglobin 9.9g/dL (12.0-15.6) Hematocrit 30.1% (35.0-46.0) Mean Corpuscular Volume 84.1fL (81-100) Mean Corpuscular Hemoglobin 27.7pg (27.0-35.0) Mean Corpuscular Hemoglobin Concent 32.9% (32.0-37.0) Red Cell Distribution Width 17.2% (12.3-15.4) Platelet Count 358bil/L (150-400) Neutrophils (%) (Auto) 58.3% (40-74) Lymphocytes (%) (Auto) 25.1% (14-46) Monocytes (%) (Auto) 11.1% (4-12) Eosinophils (%) (Auto) 4.8% (0-5) Basophils (%) (Auto) 0.5% (0-3) Sodium Level 142mEq/L (134-144) Potassium Level 3.4mEq/L (3.5-5.2) Chloride Level 108mEq/L (97-108) Carbon Dioxide Level 20mmol/L (18-29) Blood Urea Nitrogen 8mg/dL (8-27) Creatinine 0.51mg/dL (0.57-1.00) Estimat Glomerular Filtration Rate 173mL/min (>59) Glucose Level 99mg/dL (60-99) Calcium Level 8.5mg/dL (8.5-10.1) Microbiology 11/26/16 Blood Culture - Preliminary, Resulted No growth at 2 days; culture examined... 11/27/16 Gram Stain - Final, Resulted 11/27/16 Culture & Sensitivity - Preliminary, Resulted 11/27/16 Anaerobic Culture - Preliminary, Resulted Result Diagram: 11/29/16 0545 11/29/16 0545 General Appearance: Alert, Oriented X3, Cooperative, No Acute Distress Extremities: Distal Pulses Palpable Postop Sensory Motor: Distal Motor Intact, Movement in Fingers, Distal Sensation Intact, NVI Distally SURGICAL WOUND : Drain Location Body Site: Left hand Dressing & Drainage Status: Changed (by nurse this morning) Activity: Activity per PT (Gentle ROM) Catheters: None Assessment & Plan Impression s/p Left hand I&D Problems: Plan Keep dressing clean and dry Elevate hand in pillow with hand higher than elbow Activity: minimal activity with left hand. May be discharged today on oral antibiotics - either clindamycin or Bactrim would be fine Follow up with Dr. Snow in 1 week Pain Management: [place] VTE Prophylaxis: Sub-Q Heparin (Unfractionated) Resuscitation Status: CPR: Attempt Resuscitation Malorie Solorzano PA-C Nov 29, 2016 12:01
[2016-11-29] MEDS ORDERED: Vancomycin Serum Trough XX ONE (14:30)
--- NOTE | 2016-11-29 14:35 | PCM.PNMED ---
Subjective Date of Service Nov 29, 2016 Subjective Patient reports improved swallowing and pain in the left hand. Patient's bandage has not had any drainage. Patient is requesting to go home today. Exam Vital Signs Vital Sign - Last Date Time Temp Pulse Resp B/P Pulse Ox O2 Delivery O2 Flow Rate FiO2 11/29/16 11:34 36.7 74 18 168/72 95 Room Air 11/27/16 17:09 2.00 Intake and Output 11/28/16 11/28/16 11/29/16 Cumulative From/Thru 15:00 23:00 07:00 11/26/16 18:08 - 11/29/16 06:18 Intake Total 1555 ml 200 ml 5948 ml Output Total 600 ml 450 ml 3291 ml Balance 955 ml -250 ml 2657 ml Intake Oral 400 ml 200 ml 1300 ml IV Total 1155 ml 4648 ml Output Urine Total 600 ml 450 ml 3290 ml Estimated Blood Loss 1 ml # Bowel Movements 0 0 Exam General: No acute distress, well-developed, well-nourished, appropriately interactive HEENT: Normocephalic, atraumatic. External ears without defect. Pupils equal, round, and reactive to light and accommodation. Anicteric sclerae, moist conjunctivae, and no lid lag. Oropharynx free of erythema and cobble stoning with moist mucosa. Neck: Supple with full range of motion. No jugular venous distension. No bruits. No lymphadenopathy or thyromegaly. Cardiovascular: Regular rate and rhythm with no murmurs, rubs, or gallops appreciated Pulmonary: Clear to auscultation bilaterally with no crackles, wheezes, or rhonchi. Normal respiratory effort with no use of accessory muscles. Abdomen: Bowel tones present. Soft, nontender, nondistended. No hepatosplenomegaly or masses appreciated. Extremities: Left Hand Bandaged- minimal drainage. Fingers have normal sensation and movement. Skin: Erythema as above. Neurological: Cranial nerves grossly intact. Normal muscle strength, tone, and bulk. Reflexes, coordination, and sensory function within normal limits. No known gait impairment. Psychiatric: Normal mood and affect. Alert and oriented to person, place, and time. IVs and Medications Medications Reviewed: Medications were reviewed in detail Lab and Diagnostics Result Diagram: 11/29/16 0545 11/29/16 0545 Microbiology Microbiology 11/26/16 Blood Culture - Preliminary, Resulted No growth at 2 days; culture examined... 11/27/16 Gram Stain - Final, Resulted 11/27/16 Culture & Sensitivity - Preliminary, Resulted 11/27/16 Anaerobic Culture - Preliminary, Resulted X-Rays, CTs and MRIs 11/26/16 2005X-RAY LEFT HAND, MINIMUM THREE VIEWS ([id number]) INDICATIONS: swelling and pain TECHNIQUE: 3 views of the hand(s) acquired. COMPARISON: None. FINDINGS: Bones: No fractures or dislocations. Carpal bones are normally aligned. No suspicious bony lesions. Soft tissues: No suspicious soft tissue calcifications. IMPRESSION: No radiodense foreign body identified. Assessment & Plan Maribell Reynaga is a 66 year old woman with past medical history depression, hypertension, hypothyroidism presented to [facility] emergency department today with a left thumb injury and hand pain for the last 3 days. S/ P Incision and drainage of left hand and thumb complicated abscess POD 2. #Left thumb cellulitis complicated by abscess present on admission, S/P Incision and drainage of left thumb abscess POD #2. -Dr. Snow consulted, appreciate time and expertise -Continued Vancomycin and Ciprofloxacin. Patient's blood cultures have been no growth to date. -Morphine as needed for pain initially, switched to by mouth [place]. Pain seems to be well controlled. . - On 11/28 Splint and the drains were removed and a bulky dressing was placed, changed before discharge on Sun. -Surgery discharge instructions below- Keep dressing clean and dry -Elevate hand in pillow with hand higher than elbow -Activity: minimal activity with left hand. -Follow up with Dr. Snow in 1 week #Hypertension -Continued home medications, elevated due to pain at times. Pt will f/u with PCP in 1 week. Chronic issues, present on admission, stable: #Hypothyroidism -Continued home medications #Depression -Continued home medications #Diet controlled diabetes -Carb constant diet. Blood glucose checks within normal limits. CODE STATUS: FULL CODE Dispo- patient will be discharged home per instructions below -Keep dressing clean and dry -Elevate hand in pillow with hand higher than elbow -Activity: minimal activity with left hand. -Follow up with Dr. Snow in 1 week -Bactrim 1 week. Pain Evaluation: Adequate Pain Control VTE Prophylaxis: Sub-Q Heparin (Unfractionated) VTE Mechanical Devices: Intermittant Pneumatic CD Resuscitation Status: CPR: Attempt Resuscitation Mario Coreas MD Nov 29, 2016 14:35
[2016-11-29] MEDS ORDERED: SULF-239 PO (14:37)
[2016-11-29] MEDS ORDERED: HYDR-4003 PO (14:37)
--- NOTE | 2016-11-29 14:41 | PCM.DIMED ---
Discharge Instructions Date of Service Nov 29, 2016 Dates of Hospitalization Nov 26, 2016 at 18:36 Discharge Diagnosis Discharge Diagnosis #Left thumb cellulitis complicated by abscess present on admission #S/P Incision and drainage of left thumb abscess POD #2. #Hypertension, Resolved. Stable. Chronic issues, present on admission, stable: #Hypothyroidism #Depression #Diet controlled diabetes Medication Instructions Additional med instructions Take antibiotic Bactrim 1 tablet twice daily for 1 week. Take pain medication [place] only as needed. Test Results Test Results Microbiology 11/26/16 Blood Culture - Preliminary, Resulted No growth at 2 days; culture examined... 11/27/16 Gram Stain - Final, Resulted 11/27/16 Culture & Sensitivity - Preliminary, Resulted 11/27/16 Anaerobic Culture - Preliminary, Resulted Diet Discharge Diet: Heart Healthy, Diabetic Activity Discharge Activity: Other (minimal activity with left hand.) Patient Instructions Patient Instructions -Keep dressing clean and dry -Elevate hand in pillow with hand higher than elbow -Activity: minimal activity with left hand. -Follow up with Dr. Snow in 1 week Provider: Magdaleno Snow DO Follow-up in: 1 week Mario Coreas MD Nov 29, 2016 14:41
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
== END 2016-11-29 15:58 | disposition home or self-care (01) | DRG 580 ==
LOC: OSC 18:36
PROVIDERS: ADMIT Internal Medicine; ATTEND Internal Medicine
PROC: 0J9K0ZX Drainage of Left Hand Subcutaneous Tissue and Fascia, Open Approach, Diagnostic (ICD-10-PCS; 2016-11-27)
PROC: 0L980ZX Drainage of Left Hand Tendon, Open Approach, Diagnostic (ICD-10-PCS; principal; 2016-11-27 14:30)
DX: L03.012 Cellulitis of left finger (principal); L02.512 Cutaneous abscess of left hand; E03.9 Hypothyroidism, unspecified; I10 Essential (primary) hypertension; S69.82XA Other specified injuries of left wrist, hand and finger(s), initial encounter; W45.8XXA Other foreign body or object entering through skin, initial encounter; E11.9 Type 2 diabetes mellitus without complications; F12.90 Cannabis use, unspecified, uncomplicated; Y92.89 Other specified places as the place of occurrence of the external cause; Z72.0 Tobacco use